=== PATIENT | female | born 1995 | race African-American/Black ===

== ENCOUNTER 2017-05-12 19:43 | Emergency (ER) | payer OTHER ==
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
== END 2017-05-12 23:45 | disposition home or self-care (01) ==
LOC: CED 19:43 → CFTX 19:43
DX: S83.92XA Sprain of unspecified site of left knee, initial encounter (principal); Z91.040 Latex allergy status; V03.00XA Pedestrian on foot injured in collision with car, pick-up truck or van in nontraffic accident, initial encounter; Y92.22 Religious institution as the place of occurrence of the external cause
CPT/HCPCS: 29505; 73562; 99283